=== PATIENT | male | born 1985 | race Caucasian/White ===

== ENCOUNTER 2023-08-01 11:57 | Inpatient (IN) | payer MEDICAID ==
[~2023-08-01] VITALS: Ht 170.2 cm; Wt 84.1 kg
[2023-08-01] MEDS ORDERED: iohexol 350MG/ML 100ml bottle IV ONE (12:05)
[2023-08-01 12:27] LABS: BASOPHILS # (AUTO) 0.1 X10'3 (0-0.2); BASOPHILS % (AUTO) 0.8 % (0-1); EOSINOPHILS # (AUTO) 0.6 X10'3 (0-0.9); EOSINOPHILS % (AUTO) 5.9 % (0-6); HEMATOCRIT 35.9 % (42.0-52.0); HEMOGLOBIN 12.1 g/dl (14.0-17.9); LYMPHOCYTES # (AUTO) 1.8 X10'3 (1.1-4.8); LYMPHOCYTES % (AUTO) 17.6 % (21-51); MEAN CORPUSCULAR HEMOGLOBIN 29.5 PG (27.0-31.0); MEAN CORPUSCULAR HGB CONC 33.8 g/dL (33.0-36.5); MEAN CORPUSCULAR VOLUME 87.5 FL (78-98); MEAN PLATELET VOLUME 8.2 FL (7.4-10.4); MONOCYTES # (AUTO) 0.8 X10'3 (0-0.9); MONOCYTES % (AUTO) 8.1 % (2-12); NEUTROPHILS % (AUTO) 67.6 % (42-75); PLATELET COUNT 247 X10'3 (140-440); RED CELL DISTRIBUTION WIDTH 15.8 % (11.5-14.5); WHITE BLOOD COUNT 10.3 X10'3 (4.5-11.0)
[2023-08-01] MEDS ORDERED: labetalol 20mg/4ml (5mg/ml) syringe IV ONE (12:30)
[2023-08-01 12:36] LABS: APTT 28 SECONDS (22-32); INR 0.9 INR; PROTHROMBIN TIME 10.2 SECONDS (9.0-12.0)
[2023-08-01 12:37] LABS: ALANINE AMINOTRANSFERASE 42 U/L (12-78); ALBUMIN 3.8 G/DL (3.4-5.0); ALBUMIN/GLOBULIN RATIO 0.7 (1.1-1.5); ALKALINE PHOSPHATASE 59 IU/L (46-116); ANION GAP 8 (8-16); ASPARTATE AMINO TRANSFERASE 22 U/L (10-37); BILIRUBIN,TOTAL 0.4 MG/DL (0.1-1.0); BLOOD UREA NITROGEN 22 MG/DL (7-18); BUN/CREATININE RATIO 14.1 (10.0-20.0); CALCIUM 9.1 MG/DL (8.5-10.1); CHLORIDE 102 MMOL/L (99-107); CREATININE 1.56 MG/DL (0.60-1.10); GLUCOSE 128 MG/DL (70-104); POTASSIUM 3.7 MMOL/L (3.5-5.1); SODIUM 138 MMOL/L (135-145); TOTAL CARBON DIOXIDE 27.9 MMOL/L (24-32); TOTAL PROTEIN 9.3 G/DL (6.4-8.2); eCRCL 59 ML/MIN; eGFR 50 ML/MIN
[2023-08-01] MEDS ORDERED: ondansetron/PF 4mg/2ml inj IV PRN (14:40)
[2023-08-01] MEDS ORDERED: mag hydrox/Alum hydrox/simeth 30ml oral suspension PO PRN (14:40)
[2023-08-01] MEDS ORDERED: labetalol 20mg/4ml (5mg/ml) syringe IV PRN (14:40)
[2023-08-01] MEDS ORDERED: acetaminophen 325mg tablet PO PRN ×2 (14:40)
[2023-08-01] MEDS ORDERED: HYDROcodone/acetaminophen 5mg/325mg tablet PO PRN (14:40)
[2023-08-01] MEDS ORDERED: morphine 2 MG/ML inj. syringe IV PRN ×2 (14:40)
[2023-08-01] MEDS ORDERED: magnesium hydroxide 30ml (MOM) UD suspension PO PRN (14:40)
[2023-08-01] MEDS ORDERED: HYDROcodone/acetaminophen 10/325mg tab PO PRN (14:40)
[2023-08-01] MEDS ORDERED: FAMO20TA8 PO (15:44)
[2023-08-01] MEDS ORDERED: METO25TA6 PO (15:45)
[2023-08-01] MEDS ORDERED: LISI40TA13 PO (15:45)
[2023-08-01] MEDS ORDERED: NIFE90TA70 PO (15:46)
[2023-08-01] MEDS ORDERED: FLO0.4C PO (15:47)
[2023-08-01] MEDS ORDERED: DOCU100C40 PO (15:47)
[2023-08-01] MEDS ORDERED: METF-900 PO (15:48)
[2023-08-01] MEDS ORDERED: ATOR20TA PO (15:48)
[2023-08-01] MEDS ORDERED: SENN-283 (15:48)
[2023-08-01 20:24] LABS: ETHANOL < 10 MG/DL (<10)
[2023-08-01] MEDS: docusate sod 100mg capsule PO SCH (21:15)
[2023-08-02 06:57] LABS: BASOPHILS # (AUTO) 0.1 X10'3 (0-0.2); BASOPHILS % (AUTO) 0.9 % (0-1); EOSINOPHILS # (AUTO) 0.5 X10'3 (0-0.9); EOSINOPHILS % (AUTO) 5.8 % (0-6); HEMATOCRIT 34.3 % (42.0-52.0); HEMOGLOBIN 11.7 g/dl (14.0-17.9); LYMPHOCYTES # (AUTO) 1.6 X10'3 (1.1-4.8); LYMPHOCYTES % (AUTO) 16.8 % (21-51); MEAN CORPUSCULAR HEMOGLOBIN 29.6 PG (27.0-31.0); MEAN CORPUSCULAR HGB CONC 34.1 g/dL (33.0-36.5); MEAN CORPUSCULAR VOLUME 86.9 FL (78-98); MEAN PLATELET VOLUME 8.1 FL (7.4-10.4); MONOCYTES # (AUTO) 0.6 X10'3 (0-0.9); MONOCYTES % (AUTO) 6.2 % (2-12); NEUTROPHILS # (AUTO) 6.7 X10'3 (1.8-7.7); NEUTROPHILS % (AUTO) 70.3 % (42-75); PLATELET COUNT 254 X10'3 (140-440); RED BLOOD COUNT 3.95 X10'6 (4.70-6.10); RED CELL DISTRIBUTION WIDTH 15.7 % (11.5-14.5); WHITE BLOOD COUNT 9.5 X10'3 (4.5-11.0)
[2023-08-02 07:07] LABS: ALBUMIN 3.5 G/DL (3.4-5.0); ANION GAP 9 (8-16); BLOOD UREA NITROGEN 17 MG/DL (7-18); BUN/CREATININE RATIO 13.2 (10.0-20.0); CALCIUM 9.1 MG/DL (8.5-10.1); CHLORIDE 103 MMOL/L (99-107); CHOL/HDL RATIO 3.4 (0.00-4.99); CHOLESTEROL 170 MG/DL (0-200); CREATININE 1.29 MG/DL (0.60-1.10); GLUCOSE 122 MG/DL (70-104); HDL CHOLESTEROL 50 MG/DL (35-60); LDL CHOLESTEROL 97 MG/DL (50-100); POTASSIUM 3.6 MMOL/L (3.5-5.1); SODIUM 140 MMOL/L (135-145); TRIGLYCERIDES 120 MG/DL (20-135); eCRCL 71 ML/MIN; eGFR 62 ML/MIN
[2023-08-02] MEDS ORDERED: lisinopril 20mg tablet PO SCH (08:00)
[2023-08-02] MEDS ORDERED: famotidine 20mg tablet PO SCH (08:00)
[2023-08-02] MEDS ORDERED: atorvastatin 20mg tablet PO SCH (08:00)
[2023-08-02] MEDS ORDERED: docusate sod 100mg capsule PO SCH (08:00)
[2023-08-02] MEDS ORDERED: metoprolol tartrate 25mg tablet PO SCH (08:00)
[2023-08-02] MEDS ORDERED: tamsulosin 0.4mg capsule PO SCH (08:00)
[2023-08-02] MEDS ORDERED: NIFEdipine XL 30mg tablet PO SCH (08:00)
[2023-08-02] MEDS ORDERED: aspirin 325mg tablet, delayed-release (Ecotrin) PO SCH (08:00)
[2023-08-02 08:20] VITALS: BP 157/102; PULSE 91; RESP 16; O2SAT 99
[2023-08-02] MEDS: docusate sod 100mg capsule PO SCH (08:55)
[2023-08-02 09:57] VITALS: RESP 18; O2SAT 99
[2023-08-02 10:00] VITALS: BP 163/103; PULSE 91; RESP 18; TEMP 98.3; O2SAT 99
[2023-08-02 11:16] VITALS: BP 145/78
== END 2023-08-02 13:40 | disposition home or self-care (01) | DRG 44 ==
LOC: ER 11:58 → ED HOLD 14:42 → ORTHO 4S 08-02 07:15
PROVIDERS: ADMIT Internal Medicine; ATTEND Internal Medicine
PROC: B325YZZ Computerized Tomography (CT Scan) of Bilateral Common Carotid Arteries using Other Contrast (ICD-10-PCS; principal; 2023-08-01)
PROC: B32GYZZ Computerized Tomography (CT Scan) of Bilateral Vertebral Arteries using Other Contrast (ICD-10-PCS; 2023-08-01)
PROC: B32RYZZ Computerized Tomography (CT Scan) of Intracranial Arteries using Other Contrast (ICD-10-PCS; 2023-08-01)
PROC: B328YZZ Computerized Tomography (CT Scan) of Bilateral Internal Carotid Arteries using Other Contrast (ICD-10-PCS; 2023-08-01)
DX: I62.9 Nontraumatic intracranial hemorrhage, unspecified (principal); N17.9 Acute kidney failure, unspecified; G81.94 Hemiplegia, unspecified affecting left nondominant side; E11.22 Type 2 diabetes mellitus with diabetic chronic kidney disease; E78.5 Hyperlipidemia, unspecified; D64.9 Anemia, unspecified; I12.9 Hypertensive chronic kidney disease with stage 1 through stage 4 chronic kidney disease, or unspecified chronic kidney disease; I16.0 Hypertensive urgency; N18.30 Chronic kidney disease, stage 3 unspecified; K21.9 Gastro-esophageal reflux disease without esophagitis; T50.1X5A Adverse effect of loop [high-ceiling] diuretics, initial encounter; Y92.89 Other specified places as the place of occurrence of the external cause; Z79.84 Long term (current) use of oral hypoglycemic drugs; Z86.73 Personal history of transient ischemic attack (TIA), and cerebral infarction without residual deficits; Z79.899 Other long term (current) drug therapy
CPT/HCPCS: 36415; 70450; 70496; 70498; 70551; 71045; 80048; 80053; 80061; 80320; 82948; 83036; 83880; 84443; 85025; 85610; 85651; 85730; 93306; 99285; A6449; G0378; J3490; J7030; Q9967